=== PATIENT | female | born 1955 | race Asian ===

== ENCOUNTER → 2020-12-11 11:27 | Outpatient (CLI) | payer OTHER, SELFPAY ==
[2020-12-11 13:03] LABS: COVID19 -Nasal RAPID Negative (Negative)
== END ==
PROVIDERS: Visit Provider Physician Assistant
DX: Z01.812 Encounter for preprocedural laboratory examination (principal); Z20.822 Contact with and (suspected) exposure to COVID-19
CPT/HCPCS: 87635

== ENCOUNTER 2020-12-13 10:54 | Day surgery (SDC) | payer OTHER, SELFPAY ==
--- NOTE | 2020-12-13 | PATH_ITS ---
[facility] Accession Number: [id number] . 01 Material submitted: . gastrointestinal site - GASTRIC POLYP . 01 Clinical history: . EGD W/POSS BX R/O H.P. . 02 Diagnosis: Stomach, Polyp, Biopsy: Antral mucosa with mild foveolar hyperplasia. No evidence of Helicobacter on H/E stain. Negative for intestinal metaplasia. Negative for dysplasia and malignancy. MRV 12/18/2020 1447 Local . 02 Comment: An immunohistochemical stain will be performed to evaluate for Helicobacter organisms and the results reported as an addendum. . 02 Electronically signed: . Trini Mitchell MD, Pathologist NPI- [id number] . 01 Gross description: . The specimen is received in formalin, labeled gastric and consists of a 0.3 x 0.2 x 0.2 cm perez fragment of soft tissue which is entirely submitted in cassette A1. ([id number]) /MRV 12/14/2020 1415 Local . 02 Pathologist provided ICD-10: K74.60 . 02 CPT . 179263, [id number] Performed at: 01 [facility] [address] [place] [id number] MD Bruno Rivero MD Phone: [phone] Performed at: 02 [facility] [address] [place], [place] [id number] MD Trini Mitchell MD Phone: [phone]
[2020-12-13 11:17] VITALS: BP 159/79; PULSE 61; RESP 12; TEMP 37.3; O2SAT 100; BMI 19.1
[2020-12-13] MEDS: SODIUM CHLORIDE 0.9% 1,000 ML 100 ML IV (11:17)
[2020-12-13] MEDS: fentaNYL 250 MCG/5 ML INJ IV (12:36)
--- NOTE | 2020-12-13 12:36 | PM.HP.1 ---
History of Present Illness History of Present Illness Date Patient Seen: 12/13/20 Chief complaint: EGD W/POSS BX Narrative: History of cirrhosis rule out esophageal varices Patient History Medical History (Updated 12/13/20 @ 10:19 by Deepti Morales RN) Chronic hepatitis B HTN (hypertension) Family & Social History Social History: household members spouse Tobacco & Substance use: Smoking Status Never smoker alcohol intake never Substance Use Type does not use Meds Home Medications and Allergies Home Medications Medication Instructions Recorded Confirmed Type loratadine [Allergy Relief 10 mg PO DAILY 12/13/20 12/13/20 History (loratadine)] telmisartan 80 mg PO DAILY 12/13/20 12/13/20 History tenofovir alafenamide PO DAILY 12/13/20 History Allergies Allergy/AdvReac Type Severity Reaction Status Date / Time No Known Drug Allergies Allergy Verified 12/13/20 11:07 Exam Vital Signs (past 8 hours): - 12/13/20 11:17 Temperature 99.1 F Pulse Rate 61 Respiratory Rate 12 Blood Pressure 159/79 H Pulse Oximetry 100 Narrative Exam Narrative: Oropharynx free of lesions Chest clear to auscultation percussion Cardiac exam reveals no S3 or murmur Assessment & Plan Assessment & Plan narrative: Probable cirrhosis rule out esophageal varices. Risks benefits and alternatives have been explained.
--- NOTE | 2020-12-13 12:37 | PM.OP.ENDO ---
Operative Date/Time/Diagnoses Date of procedure: 12/13/20 Pre-op diagnosis: See indication and findings Procedure & Clinicians Study performed: EGD Indications: Cirrhosis rule out varices Surgeon: Cait Hood Procedure Notes Procedure in detail: After informed consent was obtained the patient was placed in left lateral decubitus position. The video upper scope placed into the oropharynx and with the patient's help swelled into the esophagus. The esophagus stomach and duodenum were carefully examined. On withdrawal retroflexed view the GE junction was performed. The scope was removed. The patient tolerated procedure well. Blood loss none Complications none Sedation Total sedation time 10 minutes Versed 3 mg fentanyl 100 record mg IV titration Findings 1. Normal esophagus 2. Few gastric erosions in the antrum. Few with hematin flecks. Biopsies taken to rule out Helicobacter 3. No clear cut gastropathy of portal hypertension 4. Normal duodenal bulb and sweep Patient should have follow-up upper endoscopy in 1 year for screening. We will follow up on biopsies.
[2020-12-13] MEDS: MIDAZOLAM 5 MG/5 ML VIAL IV (12:43)
[2020-12-13 12:50] VITALS: BP 102/60; PULSE 57; RESP 14; TEMP 36.4; O2SAT 95
[2020-12-13 13:00] VITALS: BP 105/58; PULSE 63; RESP 16; O2SAT 98
[2020-12-13 13:04] VITALS: BP 87/57; PULSE 53; RESP 10; O2SAT 95
[2020-12-13 13:14] VITALS: BP 120/66; PULSE 76; RESP 18; TEMP 37.1; O2SAT 97
[2020-12-13 13:23] VITALS: BP 115/72; PULSE 63; RESP 16; TEMP 36.9; O2SAT 97
== END 2020-12-13 13:33 | disposition home or self-care (01) ==
PROVIDERS: PCP Family Medicine; Referring Provider Internal Medicine Gastroenterology; Visit Provider Internal Medicine Gastroenterology
PROC: 0DJ08ZZ Inspection of Upper Intestinal Tract, Via Natural or Artificial Opening Endoscopic (ICD-10-PCS; CPT 43235; principal; 2020-12-13 12:30)
DX: K25.9 Gastric ulcer, unspecified as acute or chronic, without hemorrhage or perforation (principal); B18.1 Chronic viral hepatitis B without delta-agent; I10 Essential (primary) hypertension
CPT/HCPCS: 43239; J2250; J3010